=== PATIENT | female | born 1930 | race Asian ===

== ENCOUNTER 2016-10-11 15:11 | Emergency (ER) | payer OTHER ==
[2016-10-11] MEDS ORDERED: NS 1,000 ML IV ONE (15:41)
--- NOTE | 2016-10-11 15:41 | EDPHY ---
H & P Stated Complaint: frequent bowel movement s/p knee surg. HPI/ROS: HPI CHIEF COMPLAINT: Diarrhea HISTORY OF PRESENT ILLNESS: Patient very pleasant 86-year-old female, she presents emergency room for increasing frequent diarrhea yellow brown in nature no blood. No vomiting. No fever. Patient recently had right knee surgery by Dr. Cheo Barber. She presents emergency room if she is having increasing diarrhea and had 1 episode of urinary incontinence. She also complains of abdominal bloating abdominal pain. The patient does not speak [place]. Her daughter is at bedside to translate. She denies fever. She states she suffered from constipation after she took pain medicine for knee surgery. She did do some stool softeners and then developed diarrhea. However the diarrhea has been gotten more more frequent. No vomiting. No blood in the stool. Does complain of abdominal bloating and abdominal cramping. Past Medical History: No significant medical history Past Surgical History: Recent right knee surgery Social History: Denies daily use of drugs, alcohol tobacco products, lives locally daughter at bedside Family History: Noncontributory ROS REVIEW OF SYSTEMS: A comprehensive 10 point review of systems is otherwise negative aside from elements mentioned in the history of present illness. Exam Constitutional appears well nontoxic triage nursing summary reviewed, vital signs reviewed, awake/alert. Eyes normal conjunctivae and sclera, EOMI, PERRLA. HENT normal inspection, atraumatic, moist mucus membranes, no epistaxis, neck supple/ no meningismus, no raccoon eyes. Respiratory clear to auscultation bilaterally, normal breath sounds, no respiratory distress, no wheezing. Cardiovascular rate normal, regular rhythm, no murmur, no edema, distal pulses normal. Gastrointestinal somewhat distended abdomen, mild tender palpation in the lower abdomen,, no rebound, no guarding, normal bowel sounds, no distension, no pulsatile mass. Genitourinary no CVA tenderness. Musculoskeletal no midline vertebral tenderness, full range of motion, no calf swelling, no tenderness of extremities, no meningismus, good pulses, neurovascularly intact. Skin pink, warm, & dry, no rash, skin atraumatic. Neurologic awake, alert and oriented x 3, AAOx3, moves all 4 extremities equally, motor intact, sensory intact, CN II-XII intact, normal cerebellar, normal vision, normal speech. Psychiatric normal mood/affect. Heme/Lymph/Immune no lymphadenopathy. Differential diagnosis includes but is not limited to and in no particular order : Diarrhea, dehydration, colitis, C diff, Bowel obstruction, appendicitis, gallbladder disease, diverticulitis, colitis, enteritis, perforated viscus, gastritis, GERD, esophagitis, urinary tract infection, pyelonephritis, kidney stones Medical Decision Making: Plan for this patient IV establishment, IV fluid bolus , check basic blood work, stool studies, CT abdomen pelvis with IV contrast for acute abdominal pain. Re-evaluation: Rule out colitis. CT scan of the abdomen pelvis with IV contrast. The results of the study are shows large amount of constipation, otherwise no acute inflammatory process, fecal impaction.. The study was read by Dr. Omer I viewed the images myself on the PACS system. Given the fecal impaction constipation patient will have a soapsuds enema to see if this improves her symptoms. 1903: Patient did receive a soapsuds enema. She did have a bowel movement. She feels better. Daughter is requesting discharge. Understands return emergency room if there is worsening abdominal pain, fever, vomiting. Source: Patient - Personal History Current Tetanus/Diphtheria Vaccine: Yes Current Tetanus Diphtheria and Acellular Pertussis (TDAP): Yes Tetanus Vaccine Date: June 2013 - Medical/Surgical History Hx Asthma: No Hx Chronic Respiratory Disease: No Hx Diabetes: No Hx Cardiac Disease: No Hx Renal Disease: No Hx Cirrhosis: No Hx Alcoholism: No Hx HIV/AIDS: No Hx Splenectomy or Spleen Trauma: No Other PMH: left total knee - Social History Smoking Status: Never smoked Constitutional: Initial Vital Signs Temperature (C) 36.9 C 10/11/16 15:18 Heart Rate 85 10/11/16 15:18 Respiratory Rate 16 10/11/16 15:18 Blood Pressure 150/75 H 10/11/16 15:18 O2 Sat (%) 96 10/11/16 15:18 O2 Delivery Mode Room Air Allergies/Adverse Reactions: No Known Allergies Allergy (Verified 10/08/13 10:17) Home Medications: Medication Instructions Recorded Ferrous Sulfate [Ferrous Sulf 325 325 mg PO BID 10/08/13 MG (*)] Multivitamins [Multivitamin (*)] 1 each PO DAILY 10/08/13 [place]-3/Dha/Epa/Fish Oil [Fish Oil 1 each PO BID 10/08/13 500 mg Softgel] Aspirin [Aspirin 325 mg (OTC)] 325 mg PO DAILY 21 Days 10/09/13 Docusate Sodium [Colace 100 MG (*)] 100 mg PO BID #0 cap 10/09/13 Hydrocodone/APAP 5/325 [[place] 1 - 2 tab PO Q6 PRN #80 tab 10/09/13 5/325 (*)] Oxycodone Ir [Oxy Ir 5 mg (RX)] 5 mg PO Q6 PRN #30 tab 10/09/13 celeCOXIB [Celebrex (*)] 200 mg PO DAILY #23 cap 10/09/13 Polyethylene Glycol 3350 [Miralax 17 gm PO DAILY #2 pkt 10/11/16 17 gm (*)] Medical Decision Making - Diagnostics Imaging Results: Imaging Impressions Abdomen CT 10/11/16 15:49 Impression: 1. Constipation with fecal impaction. 2. Cholelithiasis without biliary ductal dilation or pericholecystic fluid. 3. 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 4. Distended bladder. Findings and recommendations discussed with Emergency Department physician, Dr. Ganesh Florence, at 1719 hours on October 11, 2016. Final report concurs with initial preliminary interpretation. - Data Points Laboratory Results: Laboratory Results 10/11/16 16:11 10/11/16 16:11 10/11/16 10/11/16 10/11/16 16:11 16:11 16:11 WBC 8.42 10^3/uL 10^3/uL (3.80-9.50) RBC 2.97 10^6/uL L 10^6/uL (4.18-5.33) Hgb 9.1 g/dL L g/dL (12.6-16.3) Hct 27.0 % L % (38.0-47.0) MCV 90.9 fL fL (81.5-99.8) MCH 30.6 pg pg (27.9-34.1) MCHC 33.7 g/dL g/dL (32.4-36.7) RDW 13.1 % % (11.5-15.2) Plt Count 199 10^3/uL 10^3/uL (150-400) MPV 9.2 fL fL (8.7-11.7) Neut % (Auto) 72.8 % % (39.3-74.2) Lymph % (Auto) 15.1 % % (15.0-45.0) [place] % (Auto) 11.0 % % (4.5-13.0) Eos % (Auto) 0.4 % L % (0.6-7.6) Baso % (Auto) 0.2 % L % (0.3-1.7) Nucleat RBC Rel Count 0.0 % % (0.0-0.2) Absolute Neuts (auto) 6.13 10^3/uL 10^3/uL (1.70-6.50) Absolute Lymphs (auto) 1.27 10^3/uL 10^3/uL (1.00-3.00) Absolute Monos (auto) 0.93 10^3/uL H 10^3/uL (0.30-0.80) Absolute Eos (auto) 0.03 10^3/uL 10^3/uL (0.03-0.40) Absolute Basos (auto) 0.02 10^3/uL 10^3/uL (0.02-0.10) Absolute Nucleated RBC 0.00 10^3/uL 10^3/uL (0-0.01) Immature Gran % 0.5 % % (0.0-1.1) Immature Gran # 0.04 10^3/uL 10^3/uL (0.00-0.10) VBG Lactic Acid 0.8 mmol/L mmol/L (0.7-2.1) Sodium 130 mEq/L L mEq/L (134-144) Potassium 3.8 mEq/L mEq/L (3.5-5.2) Chloride 98 mEq/L mEq/L (97-110) Carbon Dioxide 21 mEq/l L mEq/l (22-31) Anion Gap 11 mEq/L mEq/L (8-16) BUN 22 mg/dL mg/dL (7-23) Creatinine 0.8 mg/dL mg/dL (0.6-1.0) Estimated GFR > 60 Glucose 101 mg/dL H mg/dL (70-100) Calcium 8.3 mg/dL L mg/dL (8.5-10.4) Total Bilirubin 0.6 mg/dL mg/dL (0.1-1.4) Conjugated Bilirubin 0.2 mg/dL mg/dL (0.0-0.5) Unconjugated Bilirubin 0.4 mg/dL mg/dL (0.0-1.1) AST 27 IU/L IU/L (14-46) ALT 33 IU/L IU/L (9-52) Alkaline Phosphatase 68 IU/L IU/L (38-126) Total Protein 6.4 g/dL g/dL (6.3-8.2) Albumin 3.4 g/dL L g/dL (3.5-5.0) Lipase 70.0 IU/L IU/L (23-300) Microbiology Results: MICROBIOLOGY 10/11/16 16:30 Stool Gastrointestinal Tract Panel (PCR) - Final No Organism Detected Medications Given: Discontinued Medications Sodium Chloride (Ns) 1,000 mls @ 0 mls/hr IV EDNOW ONE; Wide Open PRN Reason: Protocol Stop: 10/11/16 15:42 Last Admin: 10/11/16 16:27 Dose: 1,000 mls Departure - Departure Disposition: Home, Routine, Self-Care Clinical Impression: Constipation Qualifiers: Constipation type: unspecified constipation type Qualified Code(s): K59.00 - Constipation, unspecified Condition: Good Instructions: Constipation (ED), High Fiber Diet (ED) Additional Instructions: 1. Drink lots of fluids stay well-hydrated. 2. Return emergency room if you have worsening abdominal pain, fever, vomiting. Referrals: Karla Paez MD [Primary Care Provider] - As per Instructions Prescriptions: Polyethylene Glycol 3350 [Miralax 17 gm (*)] 17 gm PO DAILY #2 pkt
[2016-10-11 16:22] LABS: % IMMATURE GRANULYOCYTES 0.5 % (0.0-1.1); ABSOLUTE IMMATURE GRANULOCYTES 0.04 10^3/uL (0.00-0.10); ADD DIFF? NO; ADD MORPH? NO; ADD SCAN? NO; ATYPICAL LYMPHOCYTE FLAG 10 (0-99); FRAGMENT RBC FLAG 0 (0-99); HEMOGLOBIN 9.1 g/dL (12.6-16.3); LEFT SHIFT FLG 0 (0-99); LIPEMIA HEMOLYSIS FLAG 80 (0-99); MEAN CELL HEMOGLOBIN 30.6 pg (27.9-34.1); MEAN CELL HEMOGLOBIN CONCENTR. 33.7 g/dL (32.4-36.7); MEAN CELL VOLUME 90.9 fL (81.5-99.8); MEAN PLATELET VOLUME 9.2 fL (8.7-11.7); PLATELET CLUMPS FLAG 0 (0-99); PLATELET COUNT 199 10^3/uL (150-400); RED BLOOD CELL COUNT 2.97 10^6/uL (4.18-5.33); RED CELL DISTRIBUTION WIDTH 13.1 % (11.5-15.2)
[2016-10-11 16:29] VITALS: RESP 18
[2016-10-11 16:36] LABS: ALANINE AMINOTRANSFERASE 33 IU/L (9-52); ALBUMIN 3.4 g/dL (3.5-5.0); ALKALINE PHOSPHATASE 68 IU/L (38-126); ANION GAP 11 mEq/L (8-16); ASPARTATE AMINOTRANSFERASE 27 IU/L (14-46); BILIRUBIN,TOTAL 0.6 mg/dL (0.1-1.4); BILIRUBIN-CONJUGATED 0.2 mg/dL (0.0-0.5); BILIRUBIN-UNCONJUGATED 0.4 mg/dL (0.0-1.1); CALCIUM 8.3 mg/dL (8.5-10.4); CARBON DIOXIDE 21 mEq/l (22-31); CHLORIDE 98 mEq/L (97-110); CREATININE 0.8 mg/dL (0.6-1.0); GLOMERULAR FILTRATION RATE > 60; GLUCOSE 101 mg/dL (70-100); POTASSIUM 3.8 mEq/L (3.5-5.2); SODIUM 130 mEq/L (134-144); TOTAL PROTEIN 6.4 g/dL (6.3-8.2)
[2016-10-11] MEDS ORDERED: IOPAMIDOL (ISOVUE-300) 100 ML BTL ONE (16:39)
[2016-10-11 18:57] VITALS: BP 151/74; PULSE 81; TEMP 98.2; O2SAT 94
== END 2016-10-11 19:04 | disposition home or self-care (01) ==
DX: K59.00 Constipation, unspecified (principal); E86.9 Volume depletion, unspecified; Z79.82 Long term (current) use of aspirin
CPT/HCPCS: 74177; 96360; 99285; Q9967